=== PATIENT | female | born 1960 | race Two or more races ===

== ENCOUNTER → 2025-01-26 | Outpatient (CLI) | payer BC, SELFPAY ==
--- NOTE | 2025-01-26 10:56 | XR_ITS ---
Examination: Lumbar spine 3 views Technique one AP lateral coned lateral lower lumbar spine 3 views Exam date and time: January 27, 2020 5:11 AM Indications: Patient fell 4 days ago with injury to lower back, lower back pain. Findings: Adequate alignment lumbar vertebral bodies No acute lumbar fracture Diffuse lumbar disc narrowing, advanced L4-L5, L5-S1 Impression: No acute lumbar fracture
--- NOTE | 2025-01-26 10:56 | XR_ITS ---
Examination: Hand, right 3 views Technique: Hand AP, oblique, lateral 3 views Date and time of exam: January 26, 2025 1110 hrs. Indications: Patient fell 4 days ago with injury to the hand, hand pain Findings: Moderate osteopenia No acute fracture No dislocation No foreign body Impression: No acute fracture
== END | disposition home or self-care (01) ==
LOC: CDIM 10:33
PROVIDERS: PCP Family Medicine; Referring Provider Physician Assistant; Visit Provider Physician Assistant
DX: S69.91XA Unspecified injury of right wrist, hand and finger(s), initial encounter (principal); S39.92XA Unspecified injury of lower back, initial encounter; W19.XXXA Unspecified fall, initial encounter
CPT/HCPCS: 72100; 73130